=== PATIENT | male | born 1930 | race Caucasian/White ===

== ENCOUNTER → 2016-03-05 | Outpatient (CLI) | payer OTHER ==
[~2016-03-05] MED LIST: ALLO100T PO; ASPI-482 PO; ATOR40TA59 PO; BICA50TA4 PO; FURO40TA4 PO; LISI2.5T PO; METO25TA4 PO; REGADENOSON 0.4 MG/5 ML DISP.SYRIN. IV ONE
--- NOTE | 2016-03-05 13:36 | RAD ---
APPROVED REPORT Test Type: Pharmacological Stress Nurse/Tech: Meenu Moore R.N. Test Indications: fluid overload, elevated troponin Cardiac History: heart murmur, htn, tia Medications: see ehr Medical History: see ehr Resting ECG: sr Resting Heart Rate: 63 bpm Resting Blood Pressure: 121/59mmHg Pretest Chest Pain: No chest pain Nurse/Tech Notes lungs cta, heart tones regular, good radial pulses Consent: The procedure was explained to the patient in lay terms. Informed consent was witnessed. El eout was entered into [employer]. History and Stress Test performed by Meenu Moore R.N. Pharm. Details Pharmacologic stress testing was performed using 0.4mg per 5ml of regadenoson given intravenously ove r 7-10 seconds. Stress Symptoms No chest pain or symptoms. POST EXERCISE Reason for Termination: Infusion complete Target HR: No Max HR: 86 bpm Max Blood Pressure: 128/63mmHg Chest Pain: No. Arrhythmia: No. ST Change: No. INTERPRETATION Stress EKG Conclusion: No evidence of stress induced EKG changes. Imaging Protocol IMAGE PROTOCOL: Rest Tc-99m/stress Tc-99m 1 day Rest: Stress: Viability: Radiopharm.Tc99m [id number] Sestamibi Snyv11bEf 35mCi Duration 15min. 10min. Img Date 03/05/2016 03/05/2016 Inj-Img [id number]. 60min. Rest Admin Site:IV - Right AntecubitalAdministrator:Magali Wharton RT (R)(N) Stress Admin Site: IV - Right AntecubitalAdministrator: CLARA GroverTCJon, ARRT (R)(N) STRESS DATA End Diast. Vol.278.0mlAv. Heart Rate62.0bpm End Syst. Vol.171.0mlCO Index BSA0.0L/min Myocardial Jhof685.0gEject. Walmumxe53.0% Stress Rates Pk. Fill Rate1.64EDV/secLVtime Pk. Fill 107.15msec Pk. Empty Rate1.56ESV/secLVtime Pk. Coeha934.17msec 02/09 Pk. 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 Wall Motion Severe LV dysfunction with an EF of 35%. LV Perf. Quant 17 Seg. SSS7.00 17 Seg. SRS4.00 17 Seg. SDS3.00 Stress Defect Extent (% LAD)0.00Rest Defect Extent (% LAD)0.00Rev. Defect Extent (% LAD)0.00 Stress Defect Extent (% LCX) 13.80Rest Defect Extent (% LCX)11.30Rev. Defect Extent (% LCX)1.30 Stress Defect Extent (% RCA)21.10Rest Defect Extent (% RCA)20.00Rev. Defect Extent (% RCA)2.20 Stress Defect Extent (% VLADIMIR)8.30Rest Defect Extent (% VLADIMIR)7.40Rev. Defect Extent (% VLADIMIR)0.70 Other Information Quality:Fair Risk Assessment: Moderate-High Risk Conclusion 1. No evidence of stress induced EKG changes. 2. Fixed basal to mid inferior wall defect. 3. Severe LV dysfunction with an EF of 35% 4. Moderate to high risk study based on EF.
== END | disposition home or self-care (01) ==
LOC: NM 07:17
PROVIDERS: ATTEND Internal Medicine Cardiovascular Disease
DX: I50.31 Acute diastolic (congestive) heart failure (principal)
CPT/HCPCS: 78452; 93017; 96374; 96376; A9500; J2785; 96375